=== PATIENT | male | born 1970 | race Caucasian/White ===

== ENCOUNTER 2021-08-08 15:59 | Emergency (ER) | payer BC ==
[2021-08-08 16:27] VITALS: BP 145/82; PULSE 95; RESP 18; TEMP 99
[2021-08-08] MEDS ORDERED: HYDROcodone/APAP 5-325MG 1 EACH TAB PO STA (16:31)
--- NOTE | 2021-08-08 16:31 | ED ---
Lower Extremity Injury HPI - General Chief Complaint: Extremity Injury, Lower Stated Complaint: rt ankle injury last night playing football Time Seen by Provider: 08/08/21 16:20 Source: patient, family Mode of arrival: wheelchair - History of Present Illness Initial Comments: Patient is a 51-year-old male who presents emergency room with reported right ankle pain. He was playing football just after midnight last night when he injured his right ankle. He states that he planted his foot and then twisted it. He was tackled at the same time. He began having intense pain for which she has been unable to ambulate on it. He has been taking Motrin at home for pain control. Pain is persisted even though he has rested, iced and elevated the extremity. Patient presents today for x-rays. He denies any numbness or tingling of the digit. Does have some mild tenderness to palpation of the proximal tib-fib. Denies any other injuries. No other alleviating, precipitating or modifying factors - Related Data Previous Rx's Medication Instructions Recorded HYDROcodone/APAP 5-325MG [[place] 1 tab PO Q6HR PRN 3 Days #12 tab 08/08/21 5-325] Allergies Allergy/AdvReac Type Severity Reaction Status Date / Time alcohol Allergy Rash/Hives Verified 08/08/21 16:27 Review of Systems ROS Statement: Those systems with pertinent positive or pertinent negative responses have been documented in the HPI. ROS Other: All systems not noted in ROS Statement are negative. Past Medical History Past Medical History: Hyperlipidemia, Hypertension, Thyroid Disorder History of Any Multi-Drug Resistant Organisms: None Reported Past Surgical History: Orthopedic Surgery Additional Past Surgical History / Comment(s): L AND R SHOULDER SX Past Psychological History: No Psychological Hx Reported, ADD/ADHD Smoking Status: Never smoker Past Alcohol Use History: Occasional Past Drug Use History: None Reported General Exam General appearance: alert, in no apparent distress Head exam: Present: atraumatic, normocephalic, normal inspection Extremities exam: Present: tenderness (2+ DP and PT pulses. Intact sensation over the medial, lateral dorsal lower extremities. Tenderness to right lateral proximal tib-fib), other (Mild swelling around the right ankle. No overlying ecchymosis or erythema. Patient has tenderness to palpation of the medial and lateral malleolus. He has intact flexion at the hip and knee. Intact dorsiflexion and plantar flexion at the ankle. ) Course Vital Signs 08/08/21 16:18 Temperature 99 F Pulse Rate 95 Respiratory 18 Rate Blood Pressure 145/82 O2 Sat by Pulse 99 Oximetry Procedures - Orthopedic Splinting/Casting Injury #1 Side: right Lower Extremity Injury Location: short leg Lower Extremity Immobilizer: posterior splint, Vaughn wrap, synthetic pre-padded splint Other Orthopedic Equipment: crutches Medical Decision Making - Medical Decision Making Upon arrival patient is placed in room 33. A thorough history and physical exam was performed. He is given a [place] for pain control. X-rays are performed and demonstrated no acute abnormality. As the patient is nonweightbearing he is put in a posterior short cast splint. He will be nonambulatory. I did write him a prescription for [place] and crutches. He is to follow up with his primary care doctor or medical communication specialist. Call to make an appointment. Rest, ice and elevate the extremity. Alternate taking [place] and Motrin for pain control. He may need further imaging of his pain persists. He understood this. Given written and verbal discharge instructions and discharged home in stable condition Disposition Clinical Impression: Right ankle pain Disposition: HOME SELF-CARE Condition: Stable Instructions (If sedation given, give patient instructions): Ankle Sprain (ED) Additional Instructions: Do not weight bear. Keep the splint on until you either see your primary care doctor or the medical communication specialist. ambulate with crutches. Rest, ice and elevate the extremity. You may need further imaging if your pain persists. Alternate taking the [place] with Motrin. Return for any new or worsening symptoms Prescriptions: HYDROcodone/APAP 5-325MG [[place] 5-325] 1 tab PO Q6HR PRN 3 Days #12 tab PRN Reason: Pain Is patient prescribed a controlled substance at d/c from ED?: Yes When asked, does pt state using other controlled substances?: No If prescribed controlled substance>3 days was MAPS reviewed?: Prescribed <3 Days If opioid is for acute pain is fill amount 7 days or less?: Yes If Rx opioid, was Start Talking consent form obtained?: Yes Referrals: Lebron Abdul DO [Primary Care Provider] - 1-2 days Lan Walker MD [Medical Doctor] - 1-2 days Time of Disposition: 17:38
--- NOTE | 2021-08-08 17:02 | XR ---
EXAMINATION TYPE: XR tibia fibula RT DATE OF EXAM: 08/08/2021 COMPARISON: NONE HISTORY: Football injury. TECHNIQUE: 4 views FINDINGS: Tibia and fibula appear intact. Ankle mortise is anatomic. The joint is intact. IMPRESSION: Negative right tibia and fibula exam.
--- NOTE | 2021-08-08 17:03 | XR ---
EXAMINATION TYPE: XR ankle complete RT DATE OF EXAM: 08/08/2021 COMPARISON: NONE HISTORY: Pain. Injury TECHNIQUE: 3 views FINDINGS: Ankle mortise is anatomic. There is soft tissue swelling suggestive of ankle joint effusion on the lateral view. Joint spaces are normal. IMPRESSION: No fracture seen. There is probably ankle joint effusion.
== END 2021-08-08 17:52 | disposition home or self-care (01) ==
LOC: EC 15:59
DX: M25.571 Pain in right ankle and joints of right foot (principal); E78.5 Hyperlipidemia, unspecified; I10 Essential (primary) hypertension; Z72.89 Other problems related to lifestyle; Y93.61 Activity, american tackle football
CPT/HCPCS: 99283